=== PATIENT | male | born 1945 | race Caucasian/White ===

== ENCOUNTER 2024-08-28 14:58 | Emergency (ER) | payer MEDICARE, SELFPAY ==
--- NOTE | 2024-08-28 15:10 | ED.URI ---
HPI - URI/Sore Throat General Chief Complaint: Upper Respiratory Infection Stated Complaint: Chest Congestion/Body Aches/Shortness of Breath Time Seen by Provider: 08/28/24 15:10 Source: patient Mode of arrival: ambulatory Limitations: no limitations History of Present Illness HPI Narrative: Patient is 79-year-old male who presents with 2 days of cough, congestion, fatigue, body ache, intermittent shortness breath on exertion, fever. 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 Denies any nausea, vomiting, diarrhea, chest pain. Related Data Home Medications Medication Instructions Recorded Confirmed amlodipine 10 mg tablet 10 mg PO DAILY 08/28/24 08/28/24 baclofen 5 mg tablet 5 mg PO HS 08/28/24 08/28/24 clopidogrel 75 mg tablet (Plavix) 75 mg PO DAILY 08/28/24 08/28/24 ezetimibe 10 mg tablet 10 mg PO DAILY 08/28/24 08/28/24 furosemide 20 mg tablet (Lasix) 20 mg PO DAILY 08/28/24 08/28/24 gemfibrozil 600 mg tablet 600 mg PO BID 08/28/24 08/28/24 insulin glargine 100 unit/mL 66 unit subcut HS 08/28/24 08/28/24 subcutaneous solution (Lantus U-100 Insulin) isosorbide mononitrate 120 mg 120 mg PO DAILY 08/28/24 08/28/24 tablet,extended release 24 hr losartan 50 mg tablet 50 mg PO DAILY 08/28/24 08/28/24 meloxicam 15 mg tablet 15 mg PO DAILY PRN Pain 08/28/24 08/28/24 metoprolol tartrate 25 mg tablet 25 mg PO TID 08/28/24 08/28/24 nitroglycerin 0.4 mg sublingual mg sublingual Q5-15M PRN Chest Pain 08/28/24 tablet pantoprazole 40 mg granules 40 mg PO DAILY 08/28/24 08/28/24 delayed-release for susp in packet ranolazine 1,000 mg 1,000 mg PO Q12H 08/28/24 08/28/24 tablet,extended release,12 hr rivaroxaban 20 mg tablet (Xarelto) 20 mg PO DAILY 08/28/24 08/28/24 spironolactone 25 mg tablet 12.5 mg PO DAILY 08/28/24 08/28/24 sucralfate 1 gram tablet 1 g PO QID 08/28/24 08/28/24 tamsulosin 0.4 mg capsule 0.8 mg PO DAILY 08/28/24 08/28/24 trazodone 100 mg tablet 100 mg PO HS 08/28/24 08/28/24 vit C 250 mg-vit E 90 mg-zinc 40 2 tablet PO BID 08/28/24 08/28/24 mg-copper 1 [id number] capsule (PreserVision AREDS-2) Allergies Allergy/AdvReac Type Severity Reaction Status Date / Time amoxicillin [From Augmentin] Allergy Rash Verified 08/28/24 15:35 clavulanic acid Allergy Rash Verified 08/28/24 15:35 [From Augmentin] [id number] Reductase Allergy Unknown Verified 08/28/24 15:35 Inhibitor sulfur dioxide Allergy Hives Verified 08/28/24 15:35 hydromorphone AdvReac Unknown Verified 08/28/24 15:36 oxycodone AdvReac Unknown Verified 08/28/24 15:37 Review of Systems Review of Systems: All systems reviewed & are unremarkable except as noted in HPI and below Constitutional: Constitutional: Denies body ache(s), Denies chills, Denies fatigue, Denies fever(s), Denies headache(s), Denies malaise and Denies weakness Eyes: Eyes: Denies blurry vision, Denies itchy eyes and Denies loss of vision ENT: Denies otalgia, Denies headache(s), Reports nasal congestion, Denies sinus pain and Denies sore throat Cardiovascular: Cardiovascular: Denies chest pain, Denies irregular heart rhythm and Reports dyspnea Respiratory: Respiratory: Reports cough and Denies dyspnea Gastrointestinal: Gastrointestinal: Denies abdominal pain, Denies diarrhea, Denies nausea and Denies vomiting Musculoskeletal: Musculoskeletal: Denies back pain, Denies myalgias and Denies arthralgias Integumentary/Breasts: Skin/Breast: Denies pruritus and Denies rash Neurologic: Denies headache(s), Denies loss of vision and Denies weakness Psychiatric: Psychiatric: Reports no additional psychiatric complaints Endocrine: Endocrine: Denies fatigue Allergic/Immunologic: Allergic/Immunologic: Denies itchy eyes PMFSH Comments At time of signature, agree with nursing past medical, surgical, social and family history. There is no relevant family history pertinent to the presenting complaint. Exam Const: General: cooperative, healthy appe
[2024-08-28 15:14] VITALS: BP 137/43; PULSE 79; RESP 20; TEMP 38; O2SAT 99
[2024-08-28 15:52] LABS: EDCOVIDSCREEN Positive (Negative); EDINFLUASCREEN Negative (Negative); EDINFLUBSCREEN Negative (Negative)
== END 2024-08-28 16:05 | disposition home or self-care (01) ==
PROVIDERS: Emergency Provider Nurse Practitioner Family; PCP Internal Medicine
DX: U07.1 COVID-19 (principal)
CPT/HCPCS: 87426; 87804; 99203; G0463